=== PATIENT | male | born 1950 | race Caucasian/White ===

== ENCOUNTER 2016-07-21 07:35 | Day surgery (SDC) | payer OTHER ==
[~2016-07-21] VITALS: Ht 177.8 cm; Wt 104.3 kg
[2016-07-21] MEDS ORDERED: MIDAZOLAM HCL 5 MG/5 ML VIAL ONE ×2 (07:59→08:00)
[2016-07-21] MEDS ORDERED: fentaNYL CITRATE/PF 100 MCG/2 ML AMP ONE (07:59)
[2016-07-21] MEDS ORDERED: fentaNYL CITRATE/PF 100 MCG/2 ML AMP IVP ONE ×3 (10:14→10:22)
[2016-07-21] MEDS ORDERED: MIDAZOLAM HCL 5 MG/5 ML VIAL IVP ONE ×4 (10:16→10:26)
[2016-07-21 14:01] VITALS: BP_SYST 156
== END 2016-07-21 12:30 | disposition home or self-care (01) ==
LOC: SDS 07:35 → SMU 07:47 → SDS 12:30
PROVIDERS: ATTEND Internal Medicine
DX: D12.2 Benign neoplasm of ascending colon (principal); K22.70 Barrett's esophagus without dysplasia; K29.70 Gastritis, unspecified, without bleeding; K62.1 Rectal polyp; D12.4 Benign neoplasm of descending colon; K57.30 Diverticulosis of large intestine without perforation or abscess without bleeding; K64.8 Other hemorrhoids; I10 Essential (primary) hypertension; M19.90 Unspecified osteoarthritis, unspecified site
CPT/HCPCS: 36415; 43239; 45380; 45385; 87081; 88305; 88312; 88313; J2250; J3010; J7030; 45384